=== PATIENT | male | born 1970 | race Caucasian/White ===

== ENCOUNTER 2019-12-07 08:37 | Outpatient (CLI) | payer OTHER ==
[2019-12-07] MEDS ORDERED: MULT-658 PO (09:10)
[2019-12-11] MEDS ORDERED: EPINEPHRINE SYRINGE 0.1 MG/ML, 10ML ONE (12:57)
== END 2019-12-07 23:59 | disposition home or self-care (01) ==
LOC: STAR 08:37
PROVIDERS: ATTEND Internal Medicine Geriatric Medicine
DX: Z02.9 Encounter for administrative examinations, unspecified (principal)

== ENCOUNTER 2019-12-11 06:39 | Day surgery (SDC) | payer OTHER ==
[~2019-12-11] VITALS: Ht 182.9 cm; Wt 102.6 kg
[~2019-12-11 06:39] MED LIST: MULT-658 PO
[2019-12-11] MEDS ORDERED: LACTATED RINGERS 1,000 ML IV SCH (06:52)
[2019-12-11] MEDS ORDERED: CHLORHEXIDINE 15 ML UDC MM ONE (07:00)
[2019-12-11 07:11] VITALS: BP 150/89
[2019-12-11] MEDS ORDERED: MIDAZOLAM 1 MG/ML, 2ML ONE (08:40)
[2019-12-11] MEDS ORDERED: FENTANYL PF 100 MCG/2ML ONE ×2 (08:40→09:46)
[2019-12-11] MEDS ORDERED: PROPOFOL 10 MG/ML, 50ML ONE (08:53)
[2019-12-11] MEDS ORDERED: ACETAMINOPHEN 325 MG TABLET PO PRN (09:00)
[2019-12-11] MEDS ORDERED: FENTANYL PF 100 MCG/2ML IV PRN (09:00)
[2019-12-11] MEDS ORDERED: LABETALOL 5MG/ML, 20ML IV PRN (09:00)
[2019-12-11] MEDS ORDERED: OXYcodone 5 MG/5 ML ORAL.SOL UDC PO PRN (09:00)
[2019-12-11] MEDS ORDERED: ONDANSETRON 2MG/ML, 2ML IVPush PRN (09:00)
[2019-12-11] MEDS ORDERED: MEPERIDINE/PF 25MG/0.5ML IVPush PRN (09:00)
== END 2019-12-11 11:35 | disposition home or self-care (01) ==
LOC: OUT 06:39
PROVIDERS: ATTEND Internal Medicine Geriatric Medicine
DX: D12.8 Benign neoplasm of rectum (principal); Z11.59 Encounter for screening for other viral diseases
CPT/HCPCS: 36415; 45390; 45391; 87635; 88305; A4648; J2250; J2704; J3010; J7120